=== PATIENT | female | born 1970 | race American Indian/Alaskan Native ===

== ENCOUNTER 2022-06-26 18:54 | Emergency (ER) | payer OTHER ==
[~2022-06-26] VITALS: Ht 154.9 cm; Wt 95.2 kg
== END 2022-06-26 21:41 | disposition home or self-care (01) ==
LOC: ED 18:54
DX: S96.912A Strain of unspecified muscle and tendon at ankle and foot level, left foot, initial encounter (principal); S76.012A Strain of muscle, fascia and tendon of left hip, initial encounter; S86.912A Strain of unspecified muscle(s) and tendon(s) at lower leg level, left leg, initial encounter; S39.012A Strain of muscle, fascia and tendon of lower back, initial encounter; X58.XXXA Exposure to other specified factors, initial encounter
CPT/HCPCS: 72100; 73502; 73560; 73610; 99283-25

== ENCOUNTER 2023-04-02 15:21 | Emergency (ER) | payer OTHER ==
[~2023-04-02] VITALS: Ht 154.9 cm; Wt 95.2 kg
[2023-04-02 17:50] VITALS: BP 130/79
== END 2023-04-02 17:50 | disposition home or self-care (01) ==
LOC: ED 15:21
DX: S61.431A Puncture wound without foreign body of right hand, initial encounter (principal); W23.0XXA Caught, crushed, jammed, or pinched between moving objects, initial encounter; Z88.8 Allergy status to other drugs, medicaments and biological substances
CPT/HCPCS: 99283

== ENCOUNTER 2024-08-07 06:59 | Day surgery (SDC) | payer OTHER ==
[2024-08-05 13:33] VITALS: BP 150/75
[~2024-08-07] VITALS: Ht 154.9 cm; Wt 72.7 kg
[~2024-08-07 06:59] MED LIST: B-121000 MC2 PO; CERTAVITE-ANTI1 EACH PO; CLARITIN10 M2 PO; FEOSOL325 MG PO; K-TAB ER20 MEQ PO; LACTATED RINGER'S 1,000 ML IV SCH; LASIX40 MG PO; POTASSIUM CHLO10 ME1 PO; VENTOLIN HFA18 GM
[2024-08-07] MEDS ORDERED: IBLOOD GLUCOSE TEST STRIP 1 EA TEST VI PRN (07:00)
[2024-08-07] MEDS ORDERED: LIDOCAINE HCL 1% 5 ML SDV INJ ONE (07:00)
[2024-08-07 07:11] VITALS: BP 136/68
[2024-08-07] MEDS ORDERED: propofoL 200 MG/20 ML VIAL ONE ×2 (07:47→08:44)
[2024-08-07] MEDS ORDERED: LIDOCAINE HCL 2% 5 ML SDV ONE (07:47)
--- NOTE | 2024-08-07 09:00 | NUR ---
08/07/24 0900 Sonia Brice 0854-PATIENT ARRIVED TO PACU ON 6L NC NONAROUSABLE ORAL AIRWAY IN PLACE RR EVEN. PATIENT LAYING LEFT LATERAL. IVF INFUSING. SR. ABDOMEN SOFT. 0855-PATIENT REACTIVE TO VERBAL STIMULI FOLLOWING COMMANDS ORAL AIRWAY REMOVED. ORIENTED TO PACU. PLACED ON 3L NC RR EVEN. 0900-PATIENT DROWSY REPORTS "STOMACH FEELS AWFUL" ENCOURAGED TO PASS GAS. 3L NC 100% RR EVEN. LAYING LEFT LATERAL. SR HR 70'S. EYES CLOSED. HOB SLIGHTLY ELEVATED
[2024-08-07] MEDS ORDERED: ondansetron HCL 4 MG/2 ML VIAL IV ONE (09:15)
[2024-08-07 09:40] VITALS: BP 150/75
--- NOTE | 2024-08-07 10:52 | OR ---
[facility] [address] [place], [place] [address] Signed DATE OF OPERATION: SURGEON: Judy Licea MD PREOPERATIVE DIAGNOSES: 1. Anemia, now resolved. 2. Hepatitis. POSTOPERATIVE DIAGNOSES: 1. Moderate gastroduodenitis/gastropathy. 2. A small- to moderate-sized hiatal hernia. 3. Small distal esophageal varices. 4. Moderate left-sided diverticulosis. 5. Moderate internal hemorrhoids. PROCEDURES: 1. Esophagogastroduodenoscopy with CLOtest and biopsies of the pyloric bulb and antrum. 2. Colonoscopy without biopsy. ESTIMATED BLOOD LOSS: None. INDICATIONS: Kiera is a 53-year-old female, asked to see me for upper and lower endoscopy. Apparently, she was a rather significant alcoholic for many years. She has finally quit drinking. She has been working with her primary care provider. She said to have hepatitis and anemia. She has been taking iron tablets. On her preoperative blood work, the anemia has resolved. She had an ultrasound ordered in October of 2023, which was not available to us. She also went to the emergency room in August 2023, and again the report was not available to us. Her main complaint was bilateral lower extremity edema. At one point, we saw her platelet count of 160,000, but today on her preop labs it was 80,000. She was asked to see me for upper and lower endoscopy with respect to her liver workup. When she came to the office, it looks like her is with her. Unfortunately, she is very slow in responses to questions, although cooperative. In the office, I gave them pamphlets on both upper and lower endoscopy. We had reviewed the nature of the two tests. There is risk including, but not limited to gas bloating, crampy abdominal pain, bleeding, perforation requiring surgery, and missed diagnosis. We also reviewed the written instructions for a bowel prep line by line. She also understands the need for monitored anesthesia care given her body habitus along with a body mass index and her previous history of drug and alcohol abuse. We did send her for preoperative blood work as well. We can see that her hemoglobin is 12.4 with a mean Electronically Signed By: JUDY LICEA MD 08/07/24 1052 PATIENT NAME: KIERA CORDOBA OPERATIVE REPORT DATE OF : 70 REPORT #: [id number] PHYSICIAN: JUDY LICEA MD PCP: TAMIE MUHAMMAD PAC REPORT IS CONFIDENTIAL AND NOT TO BE RELEASED WITHOUT AUTHORIZATION [facility] [address], [place] [address] Signed cell volume of 96.4, platelet counts 80,000. INR is 1.18. Her creatinine is 0.50. The total bilirubin is 1.5, AST up a little at 49, ALT normal at 31, alkaline phosphatase a little up at 181, albumin 3.6. She had expressed understanding and wished to proceed. DESCRIPTION OF PROCEDURE: Kiera was taken into our endoscopy suite and placed in a supine semi-recumbent position. She was given monitored anesthesia care with propofol per our nurse shell worker. A bite block was utilized for the upper scope. The adult gastroscope was introduced and advanced out into the third portion of the duodenum without difficulty. The duodenum was unremarkable. The pyloric channel in her stomach showed moderate diffuse gastroduodenitis/gastropexy. We went ahead and took a biopsy out of the pyloric bulb as well as the antrum. We went ahead and took an additional biopsy from the antrum for CLOtest. Upon retroflexion of scope, we can see a small- to moderate-sized hiatal hernia, probably 3 cm. Unfortunately, even with an enormous amount of propofol she was moving around, we could not get a good measurement. Her GE junction is right about 32 cm. She does have mild disruption to the Z-line. We watched for some time, and we can see that she has just small distal esophageal varices. Otherwise, the distal middle and upper esophagus were unremarkable. After this, the gas was suctioned out and the gastroscope removed. Kiera tolerated the procedure quite well. Kiera was rotated into the left lateral decubitus position. She was maintained on propofol per our nurse shell worker. A digital rectal exam was performed, this was unremarkable. No external hemorrhoids. Good sphincter tone, no masses. The adult colonoscope was introduced and advanced under direct visualization of camera up into the cecum itself. We could easily see the appendiceal orifice and ileocecal valve. Her prep overall was good. A few areas of liquid stool that we had to suction out. The scope was then slowly withdrawn. She does have diverticula in the left and sigmoid colon. They were moderate in size, few to moderate in number and scattered about. The rectum was unremarkable. Upon retroflexion of scope, she has moderate internal hemorrhoid columns. After this, the gas was suctioned out, colonoscope removed. Kiera tolerated the lower endoscopy quite well. RECOMMENDATIONS: I will see Kiera back in my office in 7 to 14 days to review her results. Judy Licea MD ALB/MODL Electronically Signed By: JUDY LICEA MD 08/07/24 1052 PATIENT NAME: KIERA CORDOBA OPERATIVE REPORT DATE OF : 70 REPORT #: [id number] PHYSICIAN: JUDY LICEA MD PCP: TAMIE MUHAMMAD REPORT IS CONFIDENTIAL AND NOT TO BE RELEASED WITHOUT AUTHORIZATION [facility] [address] [place] [address] Signed /[id number] cc: Tamie Licea MD [facility] Patient Chart Copies: TAMIE MUHAMMAD ANDREW L MD [facility] ~ Electronically Signed By: JUDY LICEA MD 08/07/24 1052 PATIENT NAME: KIERA CORDOBA OPERATIVE REPORT DATE OF : 70 REPORT #: [id number] PHYSICIAN: JUDY LICEA MD PCP: TAMIE MUHAMMAD REPORT IS CONFIDENTIAL AND NOT TO BE RELEASED WITHOUT AUTHORIZATION
--- NOTE | 2024-08-11 10:55 | PATH ---
[facility] [address] [facility], [place] [address] Signed SPECIMEN(S): A DUODENAL BIOPSY SPECIMEN(S): B ANTRUM/PYLORUS BIOPSY SPECIMEN SOURCE: A. DUODENAL BIOPSY B. ANTRUM/PYLORUS BIOPSY CLINICAL HISTORY: Pre-: Screening endoscopies post EGD gastroduodenitis, colon: Diverticulosis FINAL PATHOLOGIC DIAGNOSIS: A. Duodenum, biopsy: - Duodenal mucosa with no significant pathologic changes B. Stomach, antrum/pylorus, biopsy: - Gastric antral mucosa with chronic active Helicobacter pylori associated gastritis BRP MICROSCOPIC EXAMINATION: Histologic sections of all submitted blocks are examined by light microscopy. These findings, together with the gross examination, support the pathologic diagnosis. GROSS DESCRIPTION: A. The specimen, labeled and designated "Ondina [place], duodenal biopsy," is received in formalin and consists of one simon soft tissue fragment, 0.4 cm. Entirely submitted in (A1). B. The specimen, labeled and designated "Himanshu, Ondina, antrum/pylorus biopsy," is received in formalin and consists of one simon soft tissue fragment, 0.3 cm. Entirely submitted in (B1). AB (under the direct supervision of a pathologist) The Gross Description was prepared using a voice recognition system. The report was reviewed for accuracy; however, sound-alike word errors, addition and/or deletions may occur. If there is any question about this report, please contact Client Services. ADDITIONAL NOTES: Immunohistochemical and/or in situ hybridization studies if performed in this case included appropriate positive controls that reacted as expected. This test was developed and its performance characteristics determined by [facility]. It has not been cleared or PATIENT NAME: KIERA CORDOBA PATHOLOGY DATE OF : 70 REPORT #: [id number] PHYSICIAN: ISAEL LUNA PCP: ALISON MUHAMMAD PAC REPORT IS CONFIDENTIAL AND NOT TO BE RELEASED WITHOUT AUTHORIZATION [facility] [address] [facility] [place], [place] [address] Signed approved by the U.S. Food and Drug Administration. The FDA has determined that such clearance or approval is not necessary. This test is used for clinical purposes. It should not be regarded as investigational or for research. [facility] is certified under the Clinical Laboratory Improvement Amendments of 1988 (CLIA) as qualified to perform high complexity clinical laboratory testing. PERFORMING LABORATORY: Technical component was performed by [facility], [address] [place] [address] (CLIA# [id number]). Professional interpretation was performed by [facility], [address] [place] [address] (CLIA#: [id number]). Diagnostician: José Miguel Leiva MD Pathologist Electronically Signed 08/11/2024 Copies: ~ PATIENT NAME: KIERA CORDOBA PATHOLOGY DATE OF : 70 REPORT #: [id number] PHYSICIAN: ISAEL PATHOLOGY PCP: ALISON MUHAMMAD PAC REPORT IS CONFIDENTIAL AND NOT TO BE RELEASED WITHOUT AUTHORIZATION
== END 2024-08-07 09:45 | disposition home or self-care (01) ==
LOC: DS 06:59
PROVIDERS: ATTEND Colon & Rectal Surgery
PROC: 0DJD8ZZ Inspection of Lower Intestinal Tract, Via Natural or Artificial Opening Endoscopic (ICD-10-PCS; principal; 2024-08-07 08:10)
PROC: 0DB78ZX Excision of Stomach, Pylorus, Via Natural or Artificial Opening Endoscopic, Diagnostic (ICD-10-PCS; 2024-08-07 08:10)
DX: Z12.11 Encounter for screening for malignant neoplasm of colon (principal); K57.30 Diverticulosis of large intestine without perforation or abscess without bleeding; K64.8 Other hemorrhoids; K29.50 Unspecified chronic gastritis without bleeding; B96.81 Helicobacter pylori [H. pylori] as the cause of diseases classified elsewhere; K29.90 Gastroduodenitis, unspecified, without bleeding; K44.9 Diaphragmatic hernia without obstruction or gangrene; I85.00 Esophageal varices without bleeding; K73.9 Chronic hepatitis, unspecified; F10.21 Alcohol dependence, in remission; E66.3 Overweight; Z88.6 Allergy status to analgesic agent; Z79.899 Other long term (current) drug therapy
CPT/HCPCS: 00813; 36415; 87077; 88305; J2003; J2704; J7121